=== PATIENT | female | born 2000 | race Two or more races ===

== ENCOUNTER 2024-08-02 01:07 | Emergency (ER) | payer BC ==
[~2024-08-02] VITALS: Ht 160 cm; Wt 79.4 kg
[2024-08-02 03:57] LABS: PH,URINE 7.5 (5.0-8.0); URINE APPEARANCE Clear; URINE BILIRRUBIN Negative (NEGATIVE); URINE BLOOD Negative; URINE COLOR Yellow; URINE GLUCOSE Negative (NEGATIVE); URINE LEUKOCYTE Trace; URINE NITRATE Negative; URINE PROTEIN Trace (NEGATIVE)
[2024-08-02 03:57] LABS: BASO % 0.5 % (0.1-1.2); EOS # 0.01 (0.04-0.54); EOS % 0.1 % (0.7-7.0); HEMATOCRIT 40.6 % (34.1-44.9); HEMOGLOBIN 14.1 g/dL (11.2-15.7); LYMPH # 0.95 (1.18-3.74); LYMPH % 11.2 % (19.3-53.1); MEAN CORPUSCULAR HEMOGLOBIN 31.3 pg (25.6-32.2); MONO # 0.56 (0.24-0.82); MONO % 6.6 % (4.7-12.5); NEUT # 6.89 (1.56-6.13); NEUT % 81.4 % (34.0-71.1); PLATELET COUNT 398 K/uL (163-369); RED BLOOD COUNT 4.51 M/uL (3.93-5.22); RED CELL DISTRIBUTION WIDTH 12.2 % (11.6-14.4)
[2024-08-02 04:01] LABS: URINE BACTERIA 1324.2 uL (0.0-1933); URINE EPITHELIAL CELLS 26.2 uL (0.0-38.8); URINE RBC 6.3 uL (0.0-20.8)
[2024-08-02 04:02] LABS: URINE KETONE 40 (NEGATIVE)
[2024-08-02 04:16] LABS: INFLUENZA A AG NEGATIVE (NEGATIVE)
[2024-08-02 04:17] LABS: COVID-19 AG NEGATIVE (NEGATIVE)
[2024-08-02] MEDS ORDERED: DOLOGESIC-DF 51 EACH PO (04:46)
[2024-08-02] MEDS ORDERED: OSEL75CA PO (04:46)
== END 2024-08-02 04:48 ==
LOC: ER 01:31
PROVIDERS: General Practice
DX: J10.1 Influenza due to other identified influenza virus with other respiratory manifestations (principal); R53.83 Other fatigue; Z20.822 Contact with and (suspected) exposure to COVID-19